=== PATIENT | female | born 1960 | race Caucasian/White ===

== ENCOUNTER → 2024-09-27 10:31 | Outpatient (CLI) | payer OTHER, SELFPAY ==
[2024-09-27 10:48] LABS: Add Manual Diff / Slide Review NO; Basophils Absolute Auto 0 /uL (0-100); Basophils Percent Auto 0.6 % (0-2); Eosinophils Absolute Auto 100 /uL (0-450); Eosinophils Percent Auto 2.2 % (2-4); Hematocrit 38.3 % (36-46); Lymphocytes Absolute Auto 1600 /uL (1100-4500); Lymphocytes Percent Auto 26.6 % (25-40); Mean Corpuscular HGB Conc 33.8 % (30-36); Mean Corpuscular Hemoglobin 30.2 PG (26-34); Mean Corpuscular Volume 89.2 fL (80-100); Monocytes Absolute Auto 400 /uL (0-900); Monocytes Percent Auto 6.1 % (3-14); Neutrophils Absolute Auto 3800 /uL (1500-7000); Neutrophils Percent Auto 64.5 % (50-75); Platelet Count 236 X10^3/uL (150-400); Red Cell Distribution Width 13.5 % (11.6-14.8); White Blood Cell Count 5.8 X10^3/uL (4.5-11.0)
[2024-09-27 11:17] LABS: Alanine Aminotransferase 28 IU/L (<35); Albumin 4.2 g/dL (3.5-5.0); Albumin Globulin Ratio 1.7 (1.0-2.8); Alkaline Phosphatase 64 U/L (38-126); Aspartate Aminotransferase 34 IU/L (14-36); BUN Creatinine Ratio 25.7 (6-22); Bilirubin Total 0.7 mg/dL (0.2-1.3); Blood Urea Nitrogen 19 mg/dL (7-17); Calcium 9.4 mg/dL (8.4-10.2); Carbon Dioxide 27 mmol/L (22-32); Chloride 103 mmol/L (98-107); Estimated Glomerular Filt Rate > 60 mL/min (>60); Globulin 2.5 g/dL (1.7-4.1); Glucose 92 mg/dL (70-99); HEMOLYSIS < 15 (0-50); Potassium 4.4 mmol/L (3.4-5.1); Sodium 137 mmol/L (137-145); Total Protein 6.7 g/dL (6.3-8.2)
[2024-09-27 11:45] LABS: Cancer Antigen 125 12.6 U/mL (0-35)
== END ==
LOC: LAB 10:32
PROVIDERS: PCP Family Medicine; Referring Provider Obstetrics & Gynecology; Visit Provider Obstetrics & Gynecology
DX: N88.8 Other specified noninflammatory disorders of cervix uteri (principal)
CPT/HCPCS: 36415; 80053; 85025; 86304; 86305

== ENCOUNTER → 2024-10-01 09:22 | Outpatient (CLI) | payer OTHER, SELFPAY ==
--- NOTE | 2024-10-01 10:40 | DI.CT.S_ITS ---
PROCEDURE: CT CHEST ABD PEL W CON INDICATIONS: Cervical mass TECHNIQUE: After the administration of intravenous contrast, 5 mm thick sections acquired from the lung apices to the symphysis. 5 mm coronal and sagittal reformats were performed, with additional 7 mm MIP reformats through the lungs. For radiation dose reduction, the following was used: automated exposure control, adjustment of mA and/or kV according to patient size. COMPARISON: None. FINDINGS: Image quality: Excellent. CHEST: Lower Neck: No enlarged lymph nodes. Thyroid: No thyroid nodules which require sonographic follow up, per consensus guidelines. Axillae: No enlarged lymph nodes. Chest Wall: Unremarkable. Lungs and Pleura: No pneumothorax or pleural effusions. No consolidation or suspicious nodules. Heart: Heart size is normal. No pericardial effusion. Thoracic Vessels: The aorta and pulmonary arteries demonstrate normal size. Mediastinum and Cat: No enlarged lymph nodes. Esophagus: No wall thickening. No hiatal hernia. ABDOMEN: Liver: No solid mass. Multiple small hepatic cysts. Gallbladder: No radiopaque gallstones or wall thickening. Biliary ducts: No biliary dilation. Pancreas: No ductal dilation. Spleen: Size is within normal limits. Adrenal Glands: No adrenal nodules. Kidneys and Ureters: No hydronephrosis. No solid mass. No complex renal cystic lesion which requires follow up. Stomach and Bowel: Normal colonic caliber, without significant wall thickening. No evidence of appendicitis. Peritoneum: No abnormal intraperitoneal fluid. No free air. Ventral Wall: No significant ventral hernia. Abdominal Nodes: No retroperitoneal or mesenteric adenopathy by size criteria. Vessels: Aorta and inferior vena cava are normal in size. PELVIS: Pelvic Organs: 3.4 x 4.0 x 3.9 centimeter cervical mass with central necrosis. Bladder: Bladder wall is thickened and irregular. Pelvic Nodes: No enlarged lymph nodes. Miscellaneous: No inguinal hernias are seen. Bones: No aggressive osseous abnormality. IMPRESSION: No evidence of metastatic disease. Uterine cervix mass consistent with reported carcinoma Urinary bladder wall thickening irregularity concerning for cystitis. Correlate with urinalysis data. Dictated by: Samantha Blankenship MD, PhD on 10/01/2024 at 11:16 Approved by: Samantha Blankenship MD, PhD on 10/01/2024 at 11:22
== END ==
PROVIDERS: PCP Family Medicine; Referring Provider Family Medicine; Visit Provider Obstetrics & Gynecology
DX: N88.8 Other specified noninflammatory disorders of cervix uteri (principal); R93.41 Abnormal radiologic findings on diagnostic imaging of renal pelvis, ureter, or bladder
CPT/HCPCS: 71260; 74177; Q9967

== ENCOUNTER → 2024-10-11 15:52 | Outpatient (CLI) | payer OTHER, SELFPAY ==
--- NOTE | 2024-10-11 15:53 | DI.MRI.S_ITS ---
PROCEDURE: MR PELVIS WO/W CON INDICATIONS: Squamous cell carcinoma of cervix TECHNIQUE: Coronal HASTE, sagittal breath-hold T2 FSE; axial T1 FSE with and without fat saturation through the pelvis. Optional long- and short-axis uterine nonbreath-hold T2 FSE through the uterus. Sagittal or axial dynamic VIBE during administration of contrast. Post-contrast axial or coronal VIBE/2-D FLASH with fat saturation from the iliac crests to the symphysis. Optional diffusion weighted imaging and ADC may be performed. COMPARISON: [facility], CT, CT CHEST ABD PEL W CON, 10/01/2024, 10:41. FINDINGS: Image quality: Diagnostic Lower abdomen: Unremarkable lower abdomen, no bowel obstruction. No drainable ascites Bladder: Unremarkable Reproductive organs: Thickened endometrium measures up to 1.5 cm. The junctional zone is within normal limits. The upper person of the endocervix is dilated, with filling defects likely indicating debris. Cervical mass is seen measuring up to 3.4 x 1.3 x 3.7 cm. The upper portion of the mass is in the mid cervix. The lower portion of the masses in the vaginal canal. Most of the parametrium is intact. There is a focal area of questionable parametrial indistinctness in the upper posterior portion of the cervix (/16, /16) Rectum: Unremarkable Vessels and lymph nodes: No pathologic lymphadenopathy by size criteria. Pelvic wall: Unremarkable Bones: No aggressive appearing osseous abnormality IMPRESSION: Cervical mass, extending to the vaginal canal. There is likely obstruction of the upper endocervix and endometrium, with dilation. Questionable areas of parametrial indistinctness in the upper posterior portion, without a definite measurable component outside the parametrium. No enlarged lymph nodes by size criteria in the pelvis. No hydronephrosis. Dictated by: Bryn Morrison M.D. on 10/11/2024 at 16:55 Approved by: Bryn Morrison M.D. on 10/11/2024 at 17:07
== END ==
LOC: MRI 15:53
PROVIDERS: PCP Family Medicine; Referring Provider Family Medicine; Visit Provider Emergency Medicine
DX: C53.9 Malignant neoplasm of cervix uteri, unspecified (principal); N88.8 Other specified noninflammatory disorders of cervix uteri
CPT/HCPCS: 72197; A9579

== ENCOUNTER → 2025-02-11 14:04 | Outpatient (CLI) | payer OTHER, SELFPAY ==
--- NOTE | 2025-02-11 14:06 | DI.ECHO.S_ITS ---
[facility] : : [address] : : [place] : : [id number] : : Phone: [phone] Echocardiogram Report + + :Name: HARJIT AWAN Study Date: 02/11/2025 Height: 70 in : :[facility] ReadingLocation: Weight: 133 lb : : Gender: Female BSA: 1.8 m2 : :: 1960 Age: 64 yrs BP: 135/72 mmHg: :Reason For Study: SYNCOPE : :Ordering Physician: KEVIN, : :KENDALL Performed By: Wiliam Sykes : :Referring: [id number] : + + Interpretation Summary - The left ventricular contractility is normal. Estimated ejection fraction is greater than 55% with no segmental wall motion abnormalities. No LVH. Normal diastolic function. - The right ventricular contractility is normal. - All cardiac chambers are of normal size. - Trace to mild tricuspid regurgitation with estimated pulmonary systolic artery pressures of 28 mmHg. - No obvious intracardiac shunts. - No obvious intracardiac masses nor thrombi. - No hemodynamically significant pericardial effusion. - Low right-sided filling pressures. Conclusion: Normal biventricular function with trace to mild tricuspid regurgitation and no evidence of pulmonary hypertension. Procedure: A two-dimensional transthoracic echocardiogram with color flow and Doppler was performed. The study quality was technically good. There is no prior echocardiogram noted for this patient. The patient was in normal sinus rhythm during the exam. Left Ventricle: The left ventricle is normal in size. There is normal left ventricular wall thickness. There is no ventricular septal defect visualized. The ejection fraction is estimated to be 55-60%. There are no focal wall motion abnormalities. Diastolic parameters suggest probable normal left ventricular diastolic function and normal filling pressures. Right Ventricle: The right ventricle is normal in size and function. Atria: The left atrial size is normal. Right atrial size is normal. There is no Doppler evidence for an interatrial shunt. Mitral Valve: The mitral valve leaflets appear normal. There is no evidence of stenosis, fluttering, or prolapse. There is trace mitral regurgitation. Aortic Valve: The aortic valve is trileaflet. The aortic valve opens well. No aortic regurgitation is present. Tricuspid Valve: The tricuspid valve leaflets are thin and pliable. There is mild tricuspid regurgitation. The right ventricular systolic pressure is estimated to be at least 28 mmHg based on an estimated right atrial pressure of 3 mm Hg. Pulmonic Valve: The pulmonic valve is not well seen, but is grossly normal. There is trace pulmonic regurgitation. Great Vessels: The aortic root is normal size. The dimensions of the ascending aorta are normal. The pulmonary artery is normal size. The IVC is of normal diameter and collapses greater than 50% with a sniff. This suggests a low right atrial pressure of 3 mm Hg. Pericardium/ Pleura There is no pericardial effusion. There is no pleural effusion. MMode/2D Measurements & Calculations LVIDd: 4.7 cm LVOT diam: 1.8 cm LVIDs: 3.0 cm Ao root diam: 2.7 cm FS: 37.4 % asc Aorta Diam: 3.1 cm EPSS: 0.30 cm IVSd: 0.73 cm LVPWd: 0.64 cm LV bravo. diameter/BSA (cm/m^2): 2.7 LV sys. diameter/BSA (cm/m^2): 1.7 LA A2 area: 18.6 cm2 RA long axis: 5.1 cm LA A4 area: 14.2 cm2 RA area: 16.1 cm2 LA length (vol): 4.5 cm RA vol: 43.6 ml LA vol: 49.5 ml RA : 24.8 ml/m2 LA vol index: 28.2 ml/m2 IVC diam: 1.3 cm RVD1 (basal): 3.7 cm RVD2 (mid): 2.5 cm TAPSE: 2.8 cm Doppler Measurements & Calculations Ao V2 max: 144.7 cm/sec LVOT Max Omar: 120.8 cm/sec Ao V2 mean: 106.5 cm/sec LV V1 max P.8 mmHg Ao max P.4 mmHg LV V1 VTI: 25.9 cm Ao mean P.9 mmHg VIVIENNE(I,D): 2.0 cm2 Ao V2 VTI: 30.8 cm VIVIENNE(V,D): 2.0 cm2 sev ratio: 0.84 VIVIENNE indexed to BSA (cm^2/m^2): 1.2 MV E max omar: 65.8 cm/sec TR max omar: 247.8 cm/sec MV A max omar: 54.2 cm/sec TR max P.6 mmHg MV E/A: 1.2 PA V2 max: 101.7 cm/sec Med Peak E' Omar: 7.6 cm/sec PA V2 mean: 76.4 cm/sec E/E' med: 8.6 PA mean P.5 mmHg Lat Peak E' Omar: 9.9 cm/sec PA pr(Accel): 34.5 mmHg E/E' lat: 6.6 E/e' average: 7.6 MV dec time: 0.22 sec [facility] 63.0 ml Reading Physician:CAMI
== END ==
PROVIDERS: PCP Family Medicine; Visit Provider Nurse Practitioner
DX: I07.1 Rheumatic tricuspid insufficiency (principal); R55 Syncope and collapse
CPT/HCPCS: 93306